=== PATIENT | male | born 1990 | race Caucasian/White ===

== ENCOUNTER 2018-07-19 09:14 | Emergency (ER) | payer OTHER ==
[2018-07-19 09:32] VITALS: BP 139/119
--- NOTE | 2018-07-19 09:41 | EDPHY ---
H & P Stated Complaint: face rash Source: Patient Exam Limitations: No limitations - Personal History Current Tetanus/Diphtheria Vaccine: Yes Current Tetanus Diphtheria and Acellular Pertussis (TDAP): Yes - Medical/Surgical History Hx Asthma: Yes Hx Chronic Respiratory Disease: No Hx Diabetes: No Hx Cardiac Disease: No Hx Renal Disease: No Hx Cirrhosis: No Hx Alcoholism: No Hx HIV/AIDS: No Hx Splenectomy or Spleen Trauma: No Other PMH: eczema, asthma, - Social History Smoking Status: Never smoked Time Seen by Provider: 07/19/18 09:40 HPI/ROS: HPI: This is a 27-year-old male who presents with Chief Complaint: Facial rash Location: Face Quality: Rash Duration: Several days Signs and Symptoms: no fever, no nausea, no vomiting, no diarrhea, no urinary symptoms, no chest pain, no shortness of breath, no wheezing, no cough, no sore throat, no neck stiffness, no joint pain, no swollen glands, no ear pain Timing: Acute on chronic Severity: [id number] Context: Patient has a history of eczema, asthma, depression presents accompanied by his mother with concerns of worsening eczema and a flare over the last several days. He reports that the rash is present on his torso, flexural folds and face. 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 Last time he saw his tower director was 2 years ago. He has been using the same topical cream is buys tower director over the last few days without any relief. Patient complains of itchiness. Denies any discharge. Modifying Factors: See above Comment: ROS: A comprehensive 10 system review of systems is otherwise negative aside from elements mentioned in the history of present illness. MEDICAL/SURGICAL/SOCIAL HISTORY: Medical history: Eczema, asthma, depression Surgical history: Denies Social history: Never smoked. Family history noncontributory. CONSTITUTIONAL: Polite and cooperative nontoxic-appearing adult white male, awake and alert, no obvious distress HEENT: Atraumatic and normocephalic, PERRL, EOMI. Nares patent; no rhinorrhea; no nasal mucosal edema. Tympanic membranes clear. Oropharynx clear, no exudate and moist pink mucosa. Airway patent. No lymphadenopathy. No meningismus. Cardiovascular: Normal S1/S2, regular rate, regular rhythm, without murmur rub or gallop. PULMONARY/CHEST: Symmetrical and nontender. Clear to auscultation bilaterally. Good air movement. No accessory muscle usage. ABDOMEN: Soft, nondistended, nontender, no rebound, no guarding, no peritoneal signs, no masses or organomegaly. No CVAT. EXTREMITIES: 2/2 pulses, strength 5/5, no deformities, no clubbing, no cyanosis or edema. NEUROLOGICAL: no focal neuro deficits. GCS 15. SKIN: Warm and dry, torso, Flexural fold, face presents with erythematous papular lesions. Good capillary refill. (Deidra Jeronimo) Constitutional: Initial Vital Signs Temperature (C) 37 C 07/19/18 09:29 Heart Rate 62 07/19/18 09:29 Respiratory Rate 16 07/19/18 09:29 Blood Pressure 139/119 H 07/19/18 09:29 O2 Sat (%) 97 07/19/18 09:29 O2 Delivery Mode Room Air Allergies/Adverse Reactions: No Known Allergies Allergy (Unverified 07/19/18 09:27) Home Medications: Medication Instructions Recorded Bacitracin 07/19/18 Cephalexin [Keflex (*)] 500 mg PO TID #21 cap 07/19/18 FLUoxetine 07/19/18 Hydrocortisone 1% 07/19/18 methylPREDNISolone [Medrol Dose 1 each PO AD #0 ea 07/19/18 Navdeep] Medical Decision Making ED Course/Re-evaluation: Vital signs reviewed and stable upon arrival. No signs of periorbital cellulitis. Given Medrol Dosepak and Keflex for antibiotic prophylaxis. Patient has a follow-up appoint with his tower director next Wednesday approximately 7 days from now. Work note provided per request. This patient was seen under the supervision of my secondary supervising physician. I evaluated care for this patient independently. Discussed this patient with Dr. Woodard. (Deidra Jeronimo) I did not see this patient while he was in the emergency department. However his care was discussed with the PA while the patient was in the department. I agree with treatment plan and management (Isaiah Woodard) Differential Diagnosis: Differential diagnosis includes but is not limited to impetigo, atopic dermatitis, psoriasis, contact dermatitis, periorbital cellulitis. (Deidra Jeronimo) Departure - Departure Disposition: Home, Routine, Self-Care Clinical Impression: Eczema Qualifiers: Eczema type: unspecified Qualified Code(s): L30.9 - Dermatitis, unspecified Condition: Good Instructions: Eczema (ED) Additional Instructions: Take Benadryl 25 to 50 mg every 4-6 hours as needed for itching, allergic reaction. Avoid taking hot showers. Apply cool compresses or ice to inflamed areas. Take Medrol Dosepak as directed. Take antibiotic as directed for prophylaxis against infection. Consume a minimum of 8-10 glasses of water or electrolyte fluid replacement drinks that include Gatorade, Powerade, Pedialyte. Keep follow-up appointment with Dermatology on Wednesday at [facility]. Referrals: CIRA MCCALL [Primary Care Provider] - As per Instructions Stand Alone Forms: Work Excuse Prescriptions: Cephalexin [Keflex (*)] 500 mg PO TID #21 cap methylPREDNISolone [Medrol Dose Navdeep] 1 each PO AD #0 ea
== END 2018-07-19 10:00 | disposition home or self-care (01) ==
DX: L30.9 Dermatitis, unspecified (principal)